=== PATIENT | male | born 1970 | race African-American/Black ===

== ENCOUNTER 2017-02-03 09:41 | Inpatient (IN) | payer OTHER ==
[2017-02-03 10:23] VITALS: BMI 32.2
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
[2017-02-03] MEDS ORDERED: LOPERAMIDE HCL 2 MG CAPSULE PO PRN (12:59)
[2017-02-03] MEDS ORDERED: guaiFENesin/D-METHORPHAN HB 10 ML UNIT-DOSE CUPS PO PRN (12:59)
[2017-02-03] MEDS ORDERED: MAG HYDROX/AL HYDROX/SIMETH 30 ML UNIT-DOSE CUP PO PRN (12:59)
[2017-02-03] MEDS ORDERED: IBUPROFEN 400 MG TABLET (FP) PO PRN (12:59)
[2017-02-03] MEDS ORDERED: chlordiazePOXIDE HCL 25 MG CAPSULE PO PRN (12:59)
[2017-02-03] MEDS ORDERED: NICOTINE POLACRILEX 4 MG GUM BC PRN (12:59)
[2017-02-03] MEDS ORDERED: MAGNESIUM CITRATE 300 ML BOTTLE PO PRN (12:59)
[2017-02-03] MEDS ORDERED: MENTHOL/PHENOL 1 EACH UD MM PRN (12:59)
[2017-02-03] MEDS ORDERED: diphenhydrAMINE HCL 50 MG CAPSULE PO PRN (12:59)
[2017-02-03] MEDS ORDERED: MAGNESIUM HYDROX 2400MG/30ML ORAL SUSPENSION 30 ML CUP PO PRN (12:59)
[2017-02-03] MEDS ORDERED: ACETAMINOPHEN 325 MG TABLET (FP) PO PRN (12:59)
[2017-02-03] MEDS ORDERED: hydrOXYzine PAMOATE 50 MG CAPSULE (FP) PO PRN (12:59)
[2017-02-03] MEDS ORDERED: chlordiazePOXIDE HCL 25 MG CAPSULE PO ONE (13:30)
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
[2017-02-03] MEDS: chlordiazePOXIDE HCL 25 MG CAPSULE PO SCH ×2 (17:23→22:39)
[2017-02-03 17:31] LABS: MCH 24.1 pg (25.7-33.7); MCHC 32.2 g/dl (32.0-35.9); MEAN CELL VOLUME 74.7 fl (80-96); MEAN PLT VOLUME 8.1 fl (7.5-11.1); PLATELET COUNT 404 K/MM3 (134-434); RDW 16.2 % (11.9-15.9); WHITE BLOOD COUNT 7.9 K/mm3 (4.0-10.0)
[2017-02-03 17:36] LABS: URINE APPEARANCE CLEAR; URINE BILIRUBIN NEGATIVE (NEGATIVE); URINE BLOOD NEGATIVE (NEGATIVE); URINE COLOR YELLOW; URINE GLUCOSE (UA) NEGATIVE (NEGATIVE); URINE KETONE NEGATIVE (NEGATIVE); URINE LEUK ESTERASE TRACE (NEGATIVE); URINE NITRITE NEGATIVE (NEGATIVE); URINE PROTEIN NEGATIVE (NEGATIVE); URINE UROBILINOGEN NEGATIVE mg/dL (0.2-1.0)
[2017-02-03 17:45] LABS: URINE MUCUS RARE; URINE RBC 1 /hpf (0-3); URINE WBC 14 /hpf (3-5)
[2017-02-03 18:58] LABS: ALBUMIN 3.7 g/dl (3.4-5.0); ANION GAP 9 (8-16); CALCIUM 9.1 mg/dL (8.5-10.1); CO2 25 mmol/L (21-32); GLUCOSE,RANDOM 96 mg/dL (74-106)
[2017-02-03 19:03] LABS: ALK PHOS 94 U/L (45-117); BILIRUBIN,TOTAL 0.5 mg/dL (0.2-1.0); CREATININE 1.2 mg/dL (0.7-1.3); SGOT/AST 9 U/L (15-37); SGPT/ALT 23 U/L (12-78); TOT PROT 7.3 g/dl (6.4-8.2)
[2017-02-03] MEDS: ZOLPIDEM TARTRATE 10 MG TABLET (PARK CARE ONLY) PO PRN (22:39)
[2017-02-03] MEDS: THIAMINE HCL 100 MG TABLET (FP) PO SCH (22:39)
[2017-02-04] MEDS: chlordiazePOXIDE HCL 25 MG CAPSULE PO SCH ×4 (06:01→22:44)
[2017-02-04] MEDS ORDERED: PATIENT'S OWN MEDICATION (NON-FORMULARY) (Efavirenz/Emtricitab/Tenofovir 1 TAB) PO SCH (10:00)
[2017-02-04] MEDS: HYDROCHLOROTHIAZIDE 25 MG TABLET (FP) PO SCH (10:44)
[2017-02-04] MEDS: EFAVIRENZ 600 MG TABLET PO SCH (10:44)
[2017-02-04] MEDS: PRENATAL VITAMINS W/ FOLIC ACID TABLET (FP) PO SCH (10:44)
[2017-02-04] MEDS: NICOTINE 21 MG/24 HOURS TOPICAL PATCH TD SCH (10:44)
[2017-02-04] MEDS: EMTRICITABINE 200MG/TENOFOVIR 300MG PO SCH (10:45)
--- NOTE | 2017-02-04 12:28 | EKG ---
Test Reason : Blood Pressure : / mmHG Vent. Rate : 075 BPM Atrial Rate : 075 BPM P-R Int : 176 ms QRS Dur : 092 ms QT Int : 406 ms P-R-T Axes : 047 -09 018 degrees QTc Int : 453 ms NORMAL SINUS RHYTHM POSSIBLE LEFT ATRIAL ENLARGEMENT SEPTAL INFARCT , AGE UNDETERMINED ABNORMAL ECG NO PREVIOUS ECGS AVAILABLE Confirmed by ANTONIA RIVERA MD ([id number]) on 02/04/2017 12:28:12 PM Referred By: Confirmed By:ANTONIA RIVERA MD
--- NOTE | 2017-02-04 12:51 | PN ---
[facility] CIWA - CIWA Score Nausea/Vomitin-Mild Nausea/No Vomiting Muscle Tremors: 4-Moderate,w/Arms Extend Anxiety: 3 Agitation: 3 Paroxysmal Sweats: 3 Orientation: 0-Oriented Tacttile Disturbances: 2-Mild Itch/Numbness/Burn Auditory Disturbances: 0-None Visual Disturbances: 0-None Headache: 0-None Present CIWA-Ar Total Score: 16 BHS Progress Note (SOAP) Subjective: Interrupted Sleep, Sweating, Tremors. Objective: PT. A & O X 3. NO ACUTE DISTRESS. 02/04/17 12:49 Vital Signs Temperature 97.1 F L 02/04/17 09:48 Pulse Rate 88 02/04/17 09:48 Respiratory Rate 18 02/04/17 09:48 Blood Pressure 115/87 02/04/17 09:48 O2 Sat by Pulse Oximetry (%) Laboratory Tests 02/03/17 02/03/17 02/03/17 13:00 13:00 13:00 WBC 7.9 RBC 5.67 H Hgb 13.7 Hct 42.4 MCV 74.7 L MCH 24.1 L MCHC 32.2 RDW 16.2 H Plt Count 404 MPV 8.1 Sodium 142 Potassium 4.5 Chloride 108 H Carbon Dioxide 25 Anion Gap 9 BUN 19 H Creatinine 1.2 Creat Clearance w eGFR > 60 Random Glucose 96 Calcium 9.1 Total Bilirubin 0.5 AST 9 L ALT 23 Alkaline Phosphatase 94 Total Protein 7.3 Albumin 3.7 Urine Color Urine Appearance Urine pH Ur Specific [place] Urine Protein Urine Glucose (UA) Urine Ketones Urine Blood Urine Nitrite Urine Bilirubin Urine Urobilinogen Ur Leukocyte Esterase Urine RBC Urine WBC Ur Epithelial Cells Urine Mucus RPR Titer Nonreactive 02/03/17 15:00 WBC RBC Hgb Hct MCV MCH MCHC RDW Plt Count MPV Sodium Potassium Chloride Carbon Dioxide Anion Gap BUN Creatinine Creat Clearance w eGFR Random Glucose Calcium Total Bilirubin AST ALT Alkaline Phosphatase Total Protein Albumin Urine Color Yellow Urine Appearance Clear Urine pH 5.0 Ur Specific [place] >= 1.030 H Urine Protein Negative Urine Glucose (UA) Negative Urine Ketones Negative Urine Blood Negative Urine Nitrite Negative Urine Bilirubin Negative Urine Urobilinogen Negative Ur Leukocyte Esterase Trace Urine RBC 1 Urine WBC 14 Ur Epithelial Cells Rare Urine Mucus Rare RPR Titer LABS NOTED. Assessment: 02/04/17 12:50 WITHDRAWAL SYMPTOMS. Plan: CONTINUE DETOX. REPEAT UA, URINE C + S FOR ADMISSION UA ABNORMALITIES (WBC, LEUKOCYTE ESTERASE). INCREASE PO FLUID INTAKE.
[2017-02-04 17:23] LABS: URINE APPEARANCE CLEAR; URINE BILIRUBIN NEGATIVE (NEGATIVE); URINE BLOOD NEGATIVE (NEGATIVE); URINE COLOR LTYELLOW; URINE GLUCOSE (UA) NEGATIVE (NEGATIVE); URINE KETONE NEGATIVE (NEGATIVE); URINE LEUK ESTERASE NEGATIVE (NEGATIVE); URINE NITRITE NEGATIVE (NEGATIVE); URINE PROTEIN NEGATIVE (NEGATIVE); URINE UROBILINOGEN NEGATIVE mg/dL (0.2-1.0)
[2017-02-04] MEDS: THIAMINE HCL 100 MG TABLET (FP) PO SCH (22:44)
[2017-02-04] MEDS: ZOLPIDEM TARTRATE 10 MG TABLET (PARK CARE ONLY) PO PRN (22:44)
[2017-02-05] MEDS: chlordiazePOXIDE HCL 25 MG CAPSULE PO SCH ×2 (05:21→10:27)
[2017-02-05] MEDS: NICOTINE 21 MG/24 HOURS TOPICAL PATCH TD SCH (10:26)
[2017-02-05] MEDS: PRENATAL VITAMINS W/ FOLIC ACID TABLET (FP) PO SCH (10:27)
[2017-02-05] MEDS: EFAVIRENZ 600 MG TABLET PO SCH (10:27)
[2017-02-05] MEDS: HYDROCHLOROTHIAZIDE 25 MG TABLET (FP) PO SCH (10:27)
[2017-02-05] MEDS: EMTRICITABINE 200MG/TENOFOVIR 300MG PO SCH (10:27)
--- NOTE | 2017-02-05 12:28 | PN ---
[facility] CIWA - CIWA Score Nausea/Vomitin-No Nausea/No Vomiting Muscle Tremors: 5 Anxiety: 4-Mod. Anxious/Guarded Agitation: 2 Paroxysmal Sweats: No Perspiration Orientation: 2-Disoriented Date<2 days Tacttile Disturbances: 3-Moderate Itch/Numb/Burn Auditory Disturbances: 0-None Visual Disturbances: 0-None Headache: 0-None Present CIWA-Ar Total Score: 16 S Progress Note (SOAP) Subjective: Fatigue, Tremors, Interrupted sleep. Objective: PT. A & O X 2 (DISORIENTED ABOUT DAY /DATE). NO ACUTE DISTRESS. 02/05/17 12:26 Vital Signs Temperature 96.7 F L 02/05/17 11:11 Pulse Rate 87 02/05/17 11:11 Respiratory Rate 18 02/05/17 11:11 Blood Pressure 111/85 02/05/17 11:11 O2 Sat by Pulse Oximetry (%) Laboratory Tests 02/03/17 02/03/17 02/03/17 13:00 13:00 13:00 WBC 7.9 RBC 5.67 H Hgb 13.7 Hct 42.4 MCV 74.7 L MCH 24.1 L MCHC 32.2 RDW 16.2 H Plt Count 404 MPV 8.1 Sodium 142 Potassium 4.5 Chloride 108 H Carbon Dioxide 25 Anion Gap 9 BUN 19 H Creatinine 1.2 Creat Clearance w eGFR > 60 Random Glucose 96 Calcium 9.1 Total Bilirubin 0.5 AST 9 L ALT 23 Alkaline Phosphatase 94 Total Protein 7.3 Albumin 3.7 Urine Color Urine Appearance Urine pH Ur Specific [place] Urine Protein Urine Glucose (UA) Urine Ketones Urine Blood Urine Nitrite Urine Bilirubin Urine Urobilinogen Ur Leukocyte Esterase Urine RBC Urine WBC Ur Epithelial Cells Urine Mucus RPR Titer Nonreactive 02/03/17 02/04/17 15:00 16:00 WBC RBC Hgb Hct MCV MCH MCHC RDW Plt Count MPV Sodium Potassium Chloride Carbon Dioxide Anion Gap BUN Creatinine Creat Clearance w eGFR Random Glucose Calcium Total Bilirubin AST ALT Alkaline Phosphatase Total Protein Albumin Urine Color Yellow Ltyellow Urine Appearance Clear Clear Urine pH 5.0 7.0 D Ur Specific [place] >= 1.030 H 1.020 Urine Protein Negative Negative Urine Glucose (UA) Negative Negative Urine Ketones Negative Negative Urine Blood Negative Negative Urine Nitrite Negative Negative Urine Bilirubin Negative Negative Urine Urobilinogen Negative Negative Ur Leukocyte Esterase Trace Negative Urine RBC 1 Urine WBC 14 Ur Epithelial Cells Rare Urine Mucus Rare RPR Titer LABS NOTED. RESULTS OF REPEAT UA NOTED. 02/05/17 12:27 Assessment: 02/05/17 12:26 WITHDRAWAL SYMPTOMS. Plan: CONTINUE DETOX.
[2017-02-05] MEDS: chlordiazePOXIDE 5 MG CAPSULE PO SCH ×2 (17:48→22:44)
[2017-02-05] MEDS: THIAMINE HCL 100 MG TABLET (FP) PO SCH (22:44)
[2017-02-05] MEDS: ZOLPIDEM TARTRATE 10 MG TABLET (PARK CARE ONLY) PO PRN (22:45)
[2017-02-06] MEDS: chlordiazePOXIDE 5 MG CAPSULE PO SCH ×2 (07:32→10:38)
[2017-02-06] MEDS: EMTRICITABINE 200MG/TENOFOVIR 300MG PO SCH (10:37)
[2017-02-06] MEDS: HYDROCHLOROTHIAZIDE 25 MG TABLET (FP) PO SCH (10:37)
[2017-02-06] MEDS: EFAVIRENZ 600 MG TABLET PO SCH (10:37)
[2017-02-06] MEDS: NICOTINE 21 MG/24 HOURS TOPICAL PATCH TD SCH (10:37)
[2017-02-06] MEDS: PRENATAL VITAMINS W/ FOLIC ACID TABLET (FP) PO SCH (10:37)
[2017-02-06] MEDS: chlordiazePOXIDE HCL 10 MG CAPSULE PO SCH ×2 (17:39→22:31)
--- NOTE | 2017-02-06 20:38 | PN ---
BHS Progress Note (SOAP) Subjective: Body Aches, Interrupted Sleep. Objective: PT. A & O X 2 (DISORIENTED ABOUT DAY / DATE). PT. OBSERVED AMBULATING ON UNIT. NO ACUTE DISTRESS. 02/06/17 20:36 Vital Signs Temperature 97.4 F L 02/06/17 19:04 Pulse Rate 82 02/06/17 19:04 Respiratory Rate 18 02/06/17 19:04 Blood Pressure 114/78 02/06/17 19:04 O2 Sat by Pulse Oximetry (%) Laboratory Tests 02/03/17 02/03/17 02/03/17 13:00 13:00 13:00 WBC 7.9 RBC 5.67 H Hgb 13.7 Hct 42.4 MCV 74.7 L MCH 24.1 L MCHC 32.2 RDW 16.2 H Plt Count 404 MPV 8.1 Sodium 142 Potassium 4.5 Chloride 108 H Carbon Dioxide 25 Anion Gap 9 BUN 19 H Creatinine 1.2 Creat Clearance w eGFR > 60 Random Glucose 96 Calcium 9.1 Total Bilirubin 0.5 AST 9 L ALT 23 Alkaline Phosphatase 94 Total Protein 7.3 Albumin 3.7 Urine Color Urine Appearance Urine pH Ur Specific [place] Urine Protein Urine Glucose (UA) Urine Ketones Urine Blood Urine Nitrite Urine Bilirubin Urine Urobilinogen Ur Leukocyte Esterase Urine RBC Urine WBC Ur Epithelial Cells Urine Mucus RPR Titer Nonreactive 02/03/17 02/04/17 15:00 16:00 WBC RBC Hgb Hct MCV MCH MCHC RDW Plt Count MPV Sodium Potassium Chloride Carbon Dioxide Anion Gap BUN Creatinine Creat Clearance w eGFR Random Glucose Calcium Total Bilirubin AST ALT Alkaline Phosphatase Total Protein Albumin Urine Color Yellow L[place]ellow Urine Appearance Clear Clear Urine pH 5.0 7.0 D Ur Specific [place] >= 1.030 H 1.020 Urine Protein Negative Negative Urine Glucose (UA) Negative Negative Urine Ketones Negative Negative Urine Blood Negative Negative Urine Nitrite Negative Negative Urine Bilirubin Negative Negative Urine Urobilinogen Negative Negative Ur Leukocyte Esterase Trace Negative Urine RBC 1 Urine WBC 14 Ur Epithelial Cells Rare Urine Mucus Rare RPR Titer LABS NOTED. RESULTS OF REPEAT UA AND URINE C + S NOTED. 02/06/17 20:38 Assessment: 02/06/17 20:37 WITHDRAWAL SYMPTOMS. Plan: CONTINUE DETOX. INCREASE PO FLUID INTAKE.
[2017-02-06] MEDS: ZOLPIDEM TARTRATE 10 MG TABLET (PARK CARE ONLY) PO PRN (22:30)
[2017-02-06] MEDS: THIAMINE HCL 100 MG TABLET (FP) PO SCH (22:30)
[2017-02-07] MEDS: chlordiazePOXIDE HCL 10 MG CAPSULE PO SCH (05:18)
[2017-02-07] MEDS: EFAVIRENZ 600 MG TABLET PO SCH (09:00)
[2017-02-07] MEDS: EMTRICITABINE 200MG/TENOFOVIR 300MG PO SCH (09:01)
[2017-02-07] MEDS: PRENATAL VITAMINS W/ FOLIC ACID TABLET (FP) PO SCH (09:01)
[2017-02-07] MEDS: HYDROCHLOROTHIAZIDE 25 MG TABLET (FP) PO SCH (09:01)
[2017-02-07] MEDS: NICOTINE 21 MG/24 HOURS TOPICAL PATCH TD SCH (09:01)
[2017-02-07 09:24] VITALS: BP 116/85; PULSE 92; TEMP 97.1
--- NOTE | 2017-02-07 13:27 | DS ---
[facility] Detox Discharge Summary Admission Date: 02/03/17 Discharge Date: 02/07/17 - History Present History: Alcohol Dependence Pertinent Past History: PPD Positive HTN HIV - Physical Exam Results Vital Signs: Vital Signs Temperature 97.1 F L 02/07/17 09:23 Pulse Rate 92 H 02/07/17 09:23 Respiratory Rate 20 02/07/17 09:23 Blood Pressure 116/85 02/07/17 09:23 O2 Sat by Pulse Oximetry (%) Pertinent Admission Physical Exam Findings: Withdrawal symptoms Laboratory Tests 02/03/17 02/03/17 02/03/17 13:00 13:00 13:00 WBC 7.9 RBC 5.67 H Hgb 13.7 Hct 42.4 MCV 74.7 L MCH 24.1 L MCHC 32.2 RDW 16.2 H Plt Count 404 MPV 8.1 Sodium 142 Potassium 4.5 Chloride 108 H Carbon Dioxide 25 Anion Gap 9 BUN 19 H Creatinine 1.2 Creat Clearance w eGFR > 60 Random Glucose 96 Calcium 9.1 Total Bilirubin 0.5 AST 9 L ALT 23 Alkaline Phosphatase 94 Total Protein 7.3 Albumin 3.7 Urine Color Urine Appearance Urine pH Ur Specific [place] Urine Protein Urine Glucose (UA) Urine Ketones Urine Blood Urine Nitrite Urine Bilirubin Urine Urobilinogen Ur Leukocyte Esterase Urine RBC Urine WBC Ur Epithelial Cells Urine Mucus RPR Titer Nonreactive 02/03/17 02/04/17 15:00 16:00 WBC RBC Hgb Hct MCV MCH MCHC RDW Plt Count MPV Sodium Potassium Chloride Carbon Dioxide Anion Gap BUN Creatinine Creat Clearance w eGFR Random Glucose Calcium Total Bilirubin AST ALT Alkaline Phosphatase Total Protein Albumin Urine Color Yellow Ltyellow Urine Appearance Clear Clear Urine pH 5.0 7.0 D Ur Specific [place] >= 1.030 H 1.020 Urine Protein Negative Negative Urine Glucose (UA) Negative Negative Urine Ketones Negative Negative Urine Blood Negative Negative Urine Nitrite Negative Negative Urine Bilirubin Negative Negative Urine Urobilinogen Negative Negative Ur Leukocyte Esterase Trace Negative Urine RBC 1 Urine WBC 14 Ur Epithelial Cells Rare Urine Mucus Rare RPR Titer Labs noted - Treatment Hospital Course: Detox Protocol Followed, Detoxed Safely, Responded well, Discharged Condition Good - Medication Discharge Medications: Ambulatory Orders Efavirenz/Emtricitab/Tenofovir [Atripla -] 1 tab PO DAILY 02/03/17 Hydrochlorothiazide [Hctz -] 25 mg PO DAILY 02/03/17 - Diagnosis (1) Alcohol dependence with uncomplicated withdrawal Status: Acute (2) Nicotine dependence Status: Chronic (3) HIV (human immunodeficiency virus infection) Status: Chronic (4) Depression Status: Chronic (5) HTN (hypertension), benign Status: Chronic (6) PPD positive Status: Chronic - AMA Did Patient Leave Against Medical Advice: No
== END 2017-02-07 10:01 | disposition home or self-care (01) | DRG 774 ==
LOC: YASAS 09:41 → Y3N 12:07
PROVIDERS: ADMIT Internal Medicine Addiction Medicine; ATTEND Internal Medicine Addiction Medicine
PROC: HZ2ZZZZ Detoxification Services for Substance Abuse Treatment (ICD-10-PCS; principal; 2017-02-03)
DX: F10.230 Alcohol dependence with withdrawal, uncomplicated (principal); F14.20 Cocaine dependence, uncomplicated; F12.20 Cannabis dependence, uncomplicated; F17.210 Nicotine dependence, cigarettes, uncomplicated; F32.9 Major depressive disorder, single episode, unspecified; F19.24 Other psychoactive substance dependence with psychoactive substance-induced mood disorder; Z21 Asymptomatic human immunodeficiency virus [HIV] infection status; I10 Essential (primary) hypertension; R76.11 Nonspecific reaction to tuberculin skin test without active tuberculosis; G47.00 Insomnia, unspecified; Z88.8 Allergy status to other drugs, medicaments and biological substances; Z86.73 Personal history of transient ischemic attack (TIA), and cerebral infarction without residual deficits; Z90.81 Acquired absence of spleen; Z87.438 Personal history of other diseases of male genital organs; Z91.5 Personal history of self-harm
CPT/HCPCS: 36415; 71020-TC; 80053; 81003; 81015; 85027; 86593; 87086; 93005; 93010

== ENCOUNTER 2017-08-26 12:40 | Inpatient (IN) | payer OTHER ==
[2017-08-26 16:26] VITALS: BMI 33.4
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
[2017-08-26] MEDS ORDERED: IBUPROFEN 400 MG TABLET (FP) PO PRN (18:36)
[2017-08-26] MEDS ORDERED: MAGNESIUM HYDROX 2400MG/30ML ORAL SUSPENSION 30 ML CUP PO PRN (18:36)
[2017-08-26] MEDS ORDERED: MAG HYDROX/AL HYDROX/SIMETH 30 ML UNIT-DOSE CUP PO PRN (18:36)
[2017-08-26] MEDS ORDERED: guaiFENesin/D-METHORPHAN HB 10 ML UNIT-DOSE CUPS PO PRN (18:36)
[2017-08-26] MEDS ORDERED: chlordiazePOXIDE HCL 25 MG CAPSULE PO PRN (18:36)
[2017-08-26] MEDS ORDERED: MAGNESIUM CITRATE 300 ML BOTTLE PO PRN (18:36)
[2017-08-26] MEDS ORDERED: LOPERAMIDE HCL 2 MG CAPSULE PO PRN (18:36)
[2017-08-26] MEDS ORDERED: P-EPHED 60MG/TRIPROLIDI 2.5MG TABLET PO PRN (18:36)
[2017-08-26] MEDS ORDERED: MENTHOL/PHENOL 1 EACH UD MM PRN (18:36)
[2017-08-26] MEDS ORDERED: ACETAMINOPHEN 325 MG TABLET (FP) PO PRN (18:36)
[2017-08-26] MEDS ORDERED: chlordiazePOXIDE HCL 25 MG CAPSULE PO ONE (18:40)
[2017-08-26] MEDS ORDERED: PATIENT'S OWN MEDICATION (NON-FORMULARY) (Efavirenz/Emtricitab/Tenofovir 1 TAB) PO SCH (18:45)
[2017-08-26] MEDS: HYDROCHLOROTHIAZIDE 25 MG TABLET (FP) PO SCH (19:34)
[2017-08-26] MEDS: EMTRICITABINE 200MG/TENOFOVIR 300MG PO SCH (19:35)
[2017-08-26] MEDS: EFAVIRENZ 600 MG TABLET PO SCH (19:35)
[2017-08-26] MEDS ORDERED: MELATONIN 5 MG TABLETS PO PRN (22:00)
[2017-08-26] MEDS: THIAMINE HCL 100 MG TABLET (FP) PO SCH (22:41)
[2017-08-26] MEDS: PRAZOSIN HCL 1 MG CAPSULE PO SCH (22:41)
[2017-08-26] MEDS: chlordiazePOXIDE HCL 25 MG CAPSULE PO SCH (22:41)
[2017-08-27 01:39] LABS: URINE APPEARANCE CLEAR; URINE BILIRUBIN NEGATIVE (<2.0 mg/dL); URINE BLOOD NEGATIVE (NEGATIVE); URINE COLOR YELLOW; URINE GLUCOSE (UA) NEGATIVE (NEGATIVE); URINE KETONE NEGATIVE (NEGATIVE); URINE LEUK ESTERASE NEGATIVE (NEGATIVE); URINE NITRITE NEGATIVE (NEGATIVE); URINE PROTEIN NEGATIVE (NEGATIVE); URINE UROBILINOGEN NEGATIVE mg/dL (0.2-1.0)
[2017-08-27] MEDS: chlordiazePOXIDE HCL 25 MG CAPSULE PO SCH ×4 (05:25→22:34)
--- NOTE | 2017-08-27 10:08 | EKG ---
Test Reason : Blood Pressure : / mmHG Vent. Rate : 086 BPM Atrial Rate : 086 BPM P-R Int : 168 ms QRS Dur : 100 ms QT Int : 368 ms P-R-T Axes : 051 -13 028 degrees QTc Int : 440 ms NORMAL SINUS RHYTHM NORMAL ECG WHEN COMPARED WITH ECG OF 03-FEB-2017 13:29, CRITERIA FOR SEPTAL INFARCT ARE NO LONGER PRESENT Confirmed by ANN ELLIS MD ([id number]) on 08/27/2017 10:07:48 AM Referred By: Confirmed By:ANN ELLIS MD
[2017-08-27 10:20] LABS: HEMATOCRIT 45.7 % (35.4-49); HEMOGLOBIN 14.6 GM/dL (11.7-16.9); MCH 23.4 pg (25.7-33.7); MCHC 31.9 g/dl (32.0-35.9); MEAN CELL VOLUME 73.3 fl (80-96); MEAN PLT VOLUME 7.6 fl (7.5-11.1); PLATELET COUNT 347 K/MM3 (134-434); RBC 6.24 M/mm3 (4.00-5.60); RDW 16.1 % (11.9-15.9); WHITE BLOOD COUNT 7.1 K/mm3 (4.0-10.0)
[2017-08-27] MEDS: HYDROCHLOROTHIAZIDE 25 MG TABLET (FP) PO SCH (10:28)
[2017-08-27] MEDS: PRENATAL VITAMINS W/ FOLIC ACID TABLET (FP) PO SCH (10:28)
[2017-08-27 10:29] LABS: ALBUMIN 3.7 g/dl (3.4-5.0); ANION GAP 11 (8-16); BLOOD UREA NITROGEN 9 mg/dL (7-18); CALCIUM 9.1 mg/dL (8.5-10.1); CHLORIDE 104 mmol/L (98-107); CO2 26 mmol/L (21-32); GLUCOSE,RANDOM 86 mg/dL (74-106); POTASSIUM 4.2 mmol/L (3.5-5.1); SODIUM 141 mmol/L (136-145)
[2017-08-27] MEDS: EFAVIRENZ 600 MG TABLET PO SCH ×2 (10:29→22:35)
[2017-08-27] MEDS: EMTRICITABINE 200MG/TENOFOVIR 300MG PO SCH ×2 (10:29→22:36)
[2017-08-27 10:34] LABS: ALK PHOS 76 U/L (45-117); BILIRUBIN,TOTAL 0.3 mg/dL (0.2-1.0); CREATININE 0.9 mg/dL (0.7-1.3); SGOT/AST 13 U/L (15-37); SGPT/ALT 14 U/L (12-78); TOT PROT 7.2 g/dl (6.4-8.2)
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
--- NOTE | 2017-08-27 12:19 | PN ---
S CIWA - CIWA Score Nausea/Vomitin-No Nausea/No Vomiting Muscle Tremors: 3 Anxiety: 4-Mod. Anxious/Guarded Agitation: 2 Paroxysmal Sweats: 3 Orientation: 2-Disoriented Date<2 days Tacttile Disturbances: 2-Mild Itch/Numbness/Burn Auditory Disturbances: 0-None Visual Disturbances: 0-None Headache: 0-None Present CIWA-Ar Total Score: 16 BHS Progress Note (SOAP) Subjective: Interrupted Sleep, Fatigue, Tremors, Sweating. Objective: PATIENT A & O X 2 (UNCERTAIN ABOUT CURRENT DAY/ DATE). NO ACUTE DISTRESS. 08/27/17 12:15 Vital Signs Temperature 96.6 F L 08/27/17 09:17 Pulse Rate 93 H 08/27/17 09:17 Respiratory Rate 18 08/27/17 09:17 Blood Pressure 124/70 08/27/17 09:17 O2 Sat by Pulse Oximetry (%) Laboratory Tests 08/26/17 08/27/17 08/27/17 23:44 08:00 08:00 WBC 7.1 RBC 6.24 H Hgb 14.6 Hct 45.7 MCV 73.3 L MCH 23.4 L MCHC 31.9 L RDW 16.1 H Plt Count 347 MPV 7.6 Sodium 141 Potassium 4.2 Chloride 104 Carbon Dioxide 26 Anion Gap 11 BUN 9 D Creatinine 0.9 D Creat Clearance w eGFR > 60 Random Glucose 86 Calcium 9.1 Total Bilirubin 0.3 D AST 13 L D ALT 14 D Alkaline Phosphatase 76 Total Protein 7.2 Albumin 3.7 Urine Color Yellow Urine Appearance Clear Urine pH 6.0 Ur Specific [place] 1.017 Urine Protein Negative Urine Glucose (UA) Negative Urine Ketones Negative Urine Blood Negative Urine Nitrite Negative Urine Bilirubin Negative Urine Urobilinogen Negative Ur Leukocyte Esterase Negative RPR Titer 08/27/17 08:00 WBC RBC Hgb Hct MCV MCH MCHC RDW Plt Count MPV Sodium Potassium Chloride Carbon Dioxide Anion Gap BUN Creatinine Creat Clearance w eGFR Random Glucose Calcium Total Bilirubin AST ALT Alkaline Phosphatase Total Protein Albumin Urine Color Urine Appearance Urine pH Ur Specific [place] Urine Protein Urine Glucose (UA) Urine Ketones Urine Blood Urine Nitrite Urine Bilirubin Urine Urobilinogen Ur Leukocyte Esterase RPR Titer Nonreactive LABS NOTED. Assessment: 08/27/17 12:17 WITHDRAWAL SYMPTOMS. Plan: CONTINUE DETOX. INCREASE DAILY PO FLUID INTAKE.
[2017-08-27] MEDS: PRAZOSIN HCL 1 MG CAPSULE PO SCH (22:34)
[2017-08-27] MEDS: THIAMINE HCL 100 MG TABLET (FP) PO SCH (22:34)
[2017-08-28] MEDS: chlordiazePOXIDE HCL 25 MG CAPSULE PO SCH ×3 (05:20→18:07)
[2017-08-28] MEDS: PRENATAL VITAMINS W/ FOLIC ACID TABLET (FP) PO SCH (10:22)
[2017-08-28] MEDS: HYDROCHLOROTHIAZIDE 25 MG TABLET (FP) PO SCH (10:22)
--- NOTE | 2017-08-28 16:37 | PN ---
S CIWA - CIWA Score Nausea/Vomitin-No Nausea/No Vomiting Muscle Tremors: 3 Anxiety: 3 Agitation: 2 Paroxysmal Sweats: 3 Orientation: 0-Oriented Tacttile Disturbances: 0-None Auditory Disturbances: 2-Mild Harshness/Frighten Visual Disturbances: 3-Moderate Sensitivity Headache: 0-None Present CIWA-Ar Total Score: 16 BHS Progress Note (SOAP) Subjective: Interrupted Sleep, Fatigue, Tremors, Sweating. Objective: PATIENT A & O X 3, OBSERVED AMBULATING ON UNIT. NO ACUTE DISTRESS. 08/28/17 16:36 Vital Signs Temperature 97.1 F L 08/28/17 14:35 Pulse Rate 100 H 08/28/17 14:35 Respiratory Rate 20 08/28/17 14:35 Blood Pressure 118/88 08/28/17 14:35 O2 Sat by Pulse Oximetry (%) Laboratory Tests 08/26/17 08/27/17 08/27/17 23:44 08:00 08:00 WBC 7.1 RBC 6.24 H Hgb 14.6 Hct 45.7 MCV 73.3 L MCH 23.4 L MCHC 31.9 L RDW 16.1 H Plt Count 347 MPV 7.6 Sodium 141 Potassium 4.2 Chloride 104 Carbon Dioxide 26 Anion Gap 11 BUN 9 D Creatinine 0.9 D Creat Clearance w eGFR > 60 Random Glucose 86 Calcium 9.1 Total Bilirubin 0.3 D AST 13 L D ALT 14 D Alkaline Phosphatase 76 Total Protein 7.2 Albumin 3.7 Urine Color Yellow Urine Appearance Clear Urine pH 6.0 Ur Specific [place] 1.017 Urine Protein Negative Urine Glucose (UA) Negative Urine Ketones Negative Urine Blood Negative Urine Nitrite Negative Urine Bilirubin Negative Urine Urobilinogen Negative Ur Leukocyte Esterase Negative RPR Titer 08/27/17 08:00 WBC RBC Hgb Hct MCV MCH MCHC RDW Plt Count MPV Sodium Potassium Chloride Carbon Dioxide Anion Gap BUN Creatinine Creat Clearance w eGFR Random Glucose Calcium Total Bilirubin AST ALT Alkaline Phosphatase Total Protein Albumin Urine Color Urine Appearance Urine pH Ur Specific [place] Urine Protein Urine Glucose (UA) Urine Ketones Urine Blood Urine Nitrite Urine Bilirubin Urine Urobilinogen Ur Leukocyte Esterase RPR Titer Nonreactive LABS NOTED. Assessment: 08/28/17 16:36 WITHDRAWAL SYMPTOMS. Plan: CONTINUE DETOX. INCREASE DAILY PO FLUID INTAKE.
[2017-08-28] MEDS: PRAZOSIN HCL 1 MG CAPSULE PO SCH (22:43)
[2017-08-28] MEDS: THIAMINE HCL 100 MG TABLET (FP) PO SCH (22:43)
[2017-08-28] MEDS: EFAVIRENZ 600 MG TABLET PO SCH (22:43)
[2017-08-28] MEDS: EMTRICITABINE 200MG/TENOFOVIR 300MG PO SCH (22:43)
[2017-08-28] MEDS: chlordiazePOXIDE 5 MG CAPSULE PO SCH (22:46)
[2017-08-29] MEDS: chlordiazePOXIDE 5 MG CAPSULE PO SCH ×3 (05:19→17:48)
[2017-08-29] MEDS: HYDROCHLOROTHIAZIDE 25 MG TABLET (FP) PO SCH (10:22)
[2017-08-29] MEDS: PRENATAL VITAMINS W/ FOLIC ACID TABLET (FP) PO SCH (10:22)
--- NOTE | 2017-08-29 10:38 | PN ---
BHS Progress Note (SOAP) Subjective: sweats body aches Objective: 08/29/17 10:37 Vital Signs Temperature 96.7 F L 08/29/17 06:09 Pulse Rate 91 H 08/29/17 06:09 Respiratory Rate 18 08/29/17 06:09 Blood Pressure 91/68 08/29/17 06:09 O2 Sat by Pulse Oximetry (%) aaox3 ambulating no acute distress Assessment: 08/29/17 10:37 withdrawal sx Plan: continue detox increase fluids d/c in am
[2017-08-29] MEDS ORDERED: chlordiazePOXIDE 5 MG CAPSULE ONE (21:08)
[2017-08-29] MEDS: EFAVIRENZ 600 MG TABLET PO SCH (22:35)
[2017-08-29] MEDS: THIAMINE HCL 100 MG TABLET (FP) PO SCH (22:35)
[2017-08-29] MEDS: chlordiazePOXIDE HCL 10 MG CAPSULE PO SCH (22:36)
[2017-08-29] MEDS: PRAZOSIN HCL 1 MG CAPSULE PO SCH (22:36)
[2017-08-29] MEDS: EMTRICITABINE 200MG/TENOFOVIR 300MG PO SCH (22:36)
[2017-08-30] MEDS: chlordiazePOXIDE HCL 10 MG CAPSULE PO SCH ×2 (05:21→10:30)
[2017-08-30 09:13] VITALS: BP 130/93; PULSE 96; TEMP 95.1
[2017-08-30] MEDS: PRENATAL VITAMINS W/ FOLIC ACID TABLET (FP) PO SCH (10:28)
[2017-08-30] MEDS: HYDROCHLOROTHIAZIDE 25 MG TABLET (FP) PO SCH (10:29)
--- NOTE | 2017-08-30 12:59 | PN ---
BHS Progress Note (SOAP) Subjective: Earlier on during AM Rounds assessment, Patient reported diarrhea since earlier this AM. Patient denies any other Detox symptoms. Later on in AM, patient reported that diarrhea had subsided somewhat. Objective: PATIENT A & O X 3, OBSERVED AMBULATING ON UNIT. NO ACUTE DISTRESS. 08/30/17 12:57 Vital Signs Temperature 95.1 F L 08/30/17 09:12 Pulse Rate 96 H 08/30/17 09:12 Respiratory Rate 18 08/30/17 09:12 Blood Pressure 130/93 08/30/17 09:12 O2 Sat by Pulse Oximetry (%) Laboratory Tests 08/26/17 08/27/17 08/27/17 23:44 08:00 08:00 WBC 7.1 RBC 6.24 H Hgb 14.6 Hct 45.7 MCV 73.3 L MCH 23.4 L MCHC 31.9 L RDW 16.1 H Plt Count 347 MPV 7.6 Sodium 141 Potassium 4.2 Chloride 104 Carbon Dioxide 26 Anion Gap 11 BUN 9 D Creatinine 0.9 D Creat Clearance w eGFR > 60 Random Glucose 86 Calcium 9.1 Total Bilirubin 0.3 D AST 13 L D ALT 14 D Alkaline Phosphatase 76 Total Protein 7.2 Albumin 3.7 Urine Color Yellow Urine Appearance Clear Urine pH 6.0 Ur Specific [place] 1.017 Urine Protein Negative Urine Glucose (UA) Negative Urine Ketones Negative Urine Blood Negative Urine Nitrite Negative Urine Bilirubin Negative Urine Urobilinogen Negative Ur Leukocyte Esterase Negative RPR Titer 08/27/17 08:00 WBC RBC Hgb Hct MCV MCH MCHC RDW Plt Count MPV Sodium Potassium Chloride Carbon Dioxide Anion Gap BUN Creatinine Creat Clearance w eGFR Random Glucose Calcium Total Bilirubin AST ALT Alkaline Phosphatase Total Protein Albumin Urine Color Urine Appearance Urine pH Ur Specific [place] Urine Protein Urine Glucose (UA) Urine Ketones Urine Blood Urine Nitrite Urine Bilirubin Urine Urobilinogen Ur Leukocyte Esterase RPR Titer Nonreactive LABS NOTED. Assessment: 08/30/17 12:57 COMPLETION OF DETOX REGIMEN. Plan: PATIENT SCHEDULED FOR DETOX TODAY. PATIENT SCHEDULED TO GO ON TO [facility] FOR AFTERCARE.
--- NOTE | 2017-08-30 13:03 | DS ---
[facility] Detox Discharge Summary Admission Date: 08/26/17 Discharge Date: 08/30/17 - History Present History: Alcohol Dependence, Cannabis Dependence Additional Comments: PAT[facility] ([facility] FOR AFTERCARE. PATIENT WAS DISCHARGED FROM DETOX UNIT IN STABLE MEDICAL CONDITION. Pertinent Past History: HTN, History of Positive PPD, Insomnia, HIV, Nicotine Dependence. - Physical Exam Results Vital Signs: Vital Signs Temperature 95.1 F L 08/30/17 09:12 Pulse Rate 96 H 08/30/17 09:12 Respiratory Rate 08/30/17 09:12 Blood Pressure 130/93 08/30/17 09:12 O2 Sat by Pulse Oximetry (%) Pertinent Admission Physical Exam Findings: WITHDRAWAL SYMPTOMS. Laboratory Tests 08/26/17 08/27/17 08/27/17 23:44 08:00 08:00 WBC 7.1 RBC 6.24 H Hgb 14.6 Hct 45.7 MCV 73.3 L MCH 23.4 L MCHC 31.9 L RDW 16.1 H Plt Count 347 MPV 7.6 Sodium 141 Potassium 4.2 Chloride 104 Carbon Dioxide 26 Anion Gap 11 BUN 9 D Creatinine 0.9 D Creat Clearance w eGFR > 60 Random Glucose 86 Calcium 9.1 Total Bilirubin 0.3 D AST 13 L D ALT 14 D Alkaline Phosphatase 76 Total Protein 7.2 Albumin 3.7 Urine Color Yellow Urine Appearance Clear Urine pH 6.0 Ur Specific [place] 1.017 Urine Protein Negative Urine Glucose (UA) Negative Urine Ketones Negative Urine Blood Negative Urine Nitrite Negative Urine Bilirubin Negative Urine Urobilinogen Negative Ur Leukocyte Esterase Negative RPR Titer 08/27/17 08:00 WBC RBC Hgb Hct MCV MCH MCHC RDW Plt Count MPV Sodium Potassium Chloride Carbon Dioxide Anion Gap BUN Creatinine Creat Clearance w eGFR Random Glucose Calcium Total Bilirubin AST ALT Alkaline Phosphatase Total Protein Albumin Urine Color Urine Appearance Urine pH Ur Specific [place] Urine Protein Urine Glucose (UA) Urine Ketones Urine Blood Urine Nitrite Urine Bilirubin Urine Urobilinogen Ur Leukocyte Esterase RPR Titer Nonreactive LABS NOTED. - Treatment Hospital Course: Detox Protocol Followed, Detoxed Safely, Responded well, Discharged Condition Good, Rehab Referral Accepted Patient has Accepted a Rehab Referral to: [facility] ([facility]) . - Medication Discharge Medications: Ambulatory Orders Efavirenz/Emtricitab/Tenofovir [Atripla -] 1 tab PO DAILY 02/03/17 Hydrochlorothiazide [Hctz -] 25 mg PO DAILY 02/03/17 Prazosin HCl [Minipress -] 2 mg PO HS 08/26/17 - Diagnosis (1) Alcohol dependence with uncomplicated withdrawal Status: Acute (2) Insomnia Status: Acute Qualifiers: Insomnia type: unspecified Qualified Code(s): G47.00 - Insomnia, unspecified (3) Marihuana dependence Status: Acute (4) Nicotine dependence Status: Acute Qualifiers: Nicotine product type: cigarettes Substance use status: uncomplicated Qualified Code(s): F17.210 - Nicotine dependence, cigarettes, uncomplicated (5) Substance induced mood disorder Status: Acute (6) HIV (human immunodeficiency virus infection) Status: Chronic (7) HTN (hypertension), benign Status: Chronic (8) PPD positive Status: Chronic - AMA Did Patient Leave Against Medical Advice: No
== END 2017-08-30 12:34 | disposition other institution (70) | DRG 775 ==
LOC: YASAS 12:40 → Y3N 17:40
PROVIDERS: ADMIT Internal Medicine; ATTEND Internal Medicine
PROC: HZ2ZZZZ Detoxification Services for Substance Abuse Treatment (ICD-10-PCS; principal; 2017-08-26)
DX: F10.230 Alcohol dependence with withdrawal, uncomplicated (principal); F12.20 Cannabis dependence, uncomplicated; F17.210 Nicotine dependence, cigarettes, uncomplicated; F19.24 Other psychoactive substance dependence with psychoactive substance-induced mood disorder; G47.00 Insomnia, unspecified; I10 Essential (primary) hypertension; Z21 Asymptomatic human immunodeficiency virus [HIV] infection status; Z87.438 Personal history of other diseases of male genital organs; Z86.19 Personal history of other infectious and parasitic diseases; R76.11 Nonspecific reaction to tuberculin skin test without active tuberculosis; Z91.5 Personal history of self-harm
CPT/HCPCS: 36415; 71046-TC-FY; 80053; 81003; 85027; 86593; 93005; 93010

== ENCOUNTER 2017-08-30 12:43 | Inpatient (IN) | payer OTHER ==
[2017-08-30] MEDS ORDERED: MAG HYDROX/AL HYDROX/SIMETH 30 ML UNIT-DOSE CUP PO PRN (13:04)
[2017-08-30] MEDS ORDERED: ACETAMINOPHEN 325 MG TABLET (FP) PO PRN (13:04)
[2017-08-30] MEDS ORDERED: LOPERAMIDE HCL 2 MG CAPSULE PO PRN (13:04)
[2017-08-30] MEDS ORDERED: MENTHOL/PHENOL 1 EACH UD MM PRN (13:04)
[2017-08-30] MEDS ORDERED: MAGNESIUM CITRATE 300 ML BOTTLE PO PRN (13:04)
[2017-08-30] MEDS ORDERED: guaiFENesin/D-METHORPHAN HB 10 ML UNIT-DOSE CUPS PO PRN (13:04)
[2017-08-30] MEDS ORDERED: IBUPROFEN 400 MG TABLET (FP) PO PRN (13:04)
[2017-08-30] MEDS ORDERED: MAGNESIUM HYDROX 2400MG/30ML ORAL SUSPENSION 30 ML CUP PO PRN (13:04)
--- NOTE | 2017-08-30 13:09 | HP ---
[facility] Re[facility] Assess/Revision - Admission History Admitted to Rehab from: [facility] Date of Admission to Rehab: 08/30/2017 - Vital signs Vital Signs: NOTED; STABLE. - Findings Detox History & Physical reviewed: Yes Concur with findings: Yes Comments/Additional Findings: PATIENT'S MEDICAL / MEDICATION HISTORY REVIEWED PRIOR TO DISCHARGE FROM DETOX UNIT. PATIENT WAS DISCHARGED FROM DETOX UNIT TO [facility] IN STABLE [place] CONDITION. Inpatient Rehab Admission - Initial Determination Are CD services needed?: Yes Free of communicable disease: Yes Not in need of hospitalization: Yes - Rehab Admission Criteria Previous failed treatment: Yes Comorbidities: Yes Patient is meeting Inpatient Rehab admission criteria:: Yes
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
[2017-08-30] MEDS: THIAMINE HCL 100 MG TABLET (FP) PO SCH (21:40)
[2017-08-30] MEDS: PRAZOSIN HCL 1 MG CAPSULE PO SCH (22:26)
[2017-08-30] MEDS: MELATONIN 5 MG TABLETS PO PRN (22:28)
[2017-08-31] MEDS ORDERED: PATIENT'S OWN MEDICATION (NON-FORMULARY) (Efavirenz/Emtricitab/Tenofovir 1 TAB) PO SCH (10:00)
[2017-08-31] MEDS: EFAVIRENZ 600 MG TABLET PO SCH (10:16)
[2017-08-31] MEDS: PRENATAL VITAMINS W/ FOLIC ACID TABLET (FP) PO SCH (10:16)
[2017-08-31] MEDS: HYDROCHLOROTHIAZIDE 25 MG TABLET (FP) PO SCH (10:16)
[2017-08-31] MEDS: SERTRALINE HCL 25 MG TABLET (FP) PO SCH (10:16)
[2017-08-31] MEDS: EMTRICITABINE 200MG/TENOFOVIR 300MG PO SCH (10:17)
[2017-08-31] MEDS: THIAMINE HCL 100 MG TABLET (FP) PO SCH (21:25)
[2017-08-31] MEDS: MELATONIN 5 MG TABLETS PO PRN (21:25)
[2017-08-31] MEDS: PRAZOSIN HCL 1 MG CAPSULE PO SCH (21:25)
[2017-09-01] MEDS: HYDROCHLOROTHIAZIDE 25 MG TABLET (FP) PO SCH (10:22)
[2017-09-01] MEDS: PRENATAL VITAMINS W/ FOLIC ACID TABLET (FP) PO SCH (10:22)
[2017-09-01] MEDS: EMTRICITABINE 200MG/TENOFOVIR 300MG PO SCH (10:23)
[2017-09-01] MEDS: EFAVIRENZ 600 MG TABLET PO SCH (10:23)
[2017-09-01] MEDS: SERTRALINE HCL 25 MG TABLET (FP) PO SCH (10:23)
[2017-09-01] MEDS: PRAZOSIN HCL 1 MG CAPSULE PO SCH (21:33)
[2017-09-01] MEDS: THIAMINE HCL 100 MG TABLET (FP) PO SCH (21:33)
[2017-09-01] MEDS: MELATONIN 5 MG TABLETS PO PRN (21:33)
[2017-09-02] MEDS: HYDROCHLOROTHIAZIDE 25 MG TABLET (FP) PO SCH (10:13)
[2017-09-02] MEDS: PRENATAL VITAMINS W/ FOLIC ACID TABLET (FP) PO SCH (10:13)
[2017-09-02] MEDS: EFAVIRENZ 600 MG TABLET PO SCH (10:13)
[2017-09-02] MEDS: SERTRALINE HCL 25 MG TABLET (FP) PO SCH (10:13)
[2017-09-02] MEDS: EMTRICITABINE 200MG/TENOFOVIR 300MG PO SCH (10:13)
[2017-09-02] MEDS: THIAMINE HCL 100 MG TABLET (FP) PO SCH (21:44)
[2017-09-02] MEDS: PRAZOSIN HCL 1 MG CAPSULE PO SCH (21:44)
[2017-09-02] MEDS: MELATONIN 5 MG TABLETS PO PRN (21:46)
[2017-09-03] MEDS: EFAVIRENZ 600 MG TABLET PO SCH (10:46)
[2017-09-03] MEDS: HYDROCHLOROTHIAZIDE 25 MG TABLET (FP) PO SCH (10:46)
[2017-09-03] MEDS: PRENATAL VITAMINS W/ FOLIC ACID TABLET (FP) PO SCH (10:46)
[2017-09-03] MEDS: SERTRALINE HCL 25 MG TABLET (FP) PO SCH (10:46)
[2017-09-03] MEDS: EMTRICITABINE 200MG/TENOFOVIR 300MG PO SCH (10:51)
[2017-09-03] MEDS: PRAZOSIN HCL 1 MG CAPSULE PO SCH (21:25)
[2017-09-03] MEDS: THIAMINE HCL 100 MG TABLET (FP) PO SCH (21:25)
[2017-09-03] MEDS: MELATONIN 5 MG TABLETS PO PRN (21:26)
[2017-09-04] MEDS: HYDROCHLOROTHIAZIDE 25 MG TABLET (FP) PO SCH (10:13)
[2017-09-04] MEDS: EFAVIRENZ 600 MG TABLET PO SCH (10:13)
[2017-09-04] MEDS: SERTRALINE HCL 25 MG TABLET (FP) PO SCH (10:13)
[2017-09-04] MEDS: PRENATAL VITAMINS W/ FOLIC ACID TABLET (FP) PO SCH (10:13)
[2017-09-04] MEDS: EMTRICITABINE 200MG/TENOFOVIR 300MG PO SCH (10:14)
[2017-09-04] MEDS: PRAZOSIN HCL 1 MG CAPSULE PO SCH (21:43)
[2017-09-04] MEDS: MELATONIN 5 MG TABLETS PO PRN (21:43)
[2017-09-04] MEDS: THIAMINE HCL 100 MG TABLET (FP) PO SCH (21:43)
[2017-09-05] MEDS: HYDROCHLOROTHIAZIDE 25 MG TABLET (FP) PO SCH (09:53)
[2017-09-05] MEDS: EFAVIRENZ 600 MG TABLET PO SCH (09:53)
[2017-09-05] MEDS: PRENATAL VITAMINS W/ FOLIC ACID TABLET (FP) PO SCH (09:53)
[2017-09-05] MEDS: SERTRALINE HCL 25 MG TABLET (FP) PO SCH (09:54)
[2017-09-05] MEDS: EMTRICITABINE 200MG/TENOFOVIR 300MG PO SCH (09:54)
[2017-09-05] MEDS: PRAZOSIN HCL 1 MG CAPSULE PO SCH (21:39)
[2017-09-05] MEDS: THIAMINE HCL 100 MG TABLET (FP) PO SCH (21:39)
[2017-09-05] MEDS: MELATONIN 5 MG TABLETS PO PRN (21:40)
[2017-09-06] MEDS: HYDROCHLOROTHIAZIDE 25 MG TABLET (FP) PO SCH (10:39)
[2017-09-06] MEDS: EFAVIRENZ 600 MG TABLET PO SCH (10:39)
[2017-09-06] MEDS: PRENATAL VITAMINS W/ FOLIC ACID TABLET (FP) PO SCH (10:39)
[2017-09-06] MEDS: SERTRALINE HCL 25 MG TABLET (FP) PO SCH (10:39)
[2017-09-06] MEDS: EMTRICITABINE 200MG/TENOFOVIR 300MG PO SCH (10:40)
[2017-09-06] MEDS: THIAMINE HCL 100 MG TABLET (FP) PO SCH (21:20)
[2017-09-06] MEDS: PRAZOSIN HCL 1 MG CAPSULE PO SCH (21:20)
[2017-09-06] MEDS: MELATONIN 5 MG TABLETS PO PRN (21:21)
[2017-09-07] MEDS: EMTRICITABINE 200MG/TENOFOVIR 300MG PO SCH (10:33)
[2017-09-07] MEDS: PRENATAL VITAMINS W/ FOLIC ACID TABLET (FP) PO SCH (10:33)
[2017-09-07] MEDS: HYDROCHLOROTHIAZIDE 25 MG TABLET (FP) PO SCH (10:33)
[2017-09-07] MEDS: EFAVIRENZ 600 MG TABLET PO SCH (10:33)
[2017-09-07] MEDS: SERTRALINE HCL 25 MG TABLET (FP) PO SCH (10:33)
[2017-09-07] MEDS: MELATONIN 5 MG TABLETS PO PRN (21:16)
[2017-09-07] MEDS: PRAZOSIN HCL 1 MG CAPSULE PO SCH (21:16)
[2017-09-07] MEDS: THIAMINE HCL 100 MG TABLET (FP) PO SCH (21:16)
[2017-09-08] MEDS: EFAVIRENZ 600 MG TABLET PO SCH (10:07)
[2017-09-08] MEDS: HYDROCHLOROTHIAZIDE 25 MG TABLET (FP) PO SCH (10:07)
[2017-09-08] MEDS: SERTRALINE HCL 25 MG TABLET (FP) PO SCH (10:07)
[2017-09-08] MEDS: EMTRICITABINE 200MG/TENOFOVIR 300MG PO SCH (10:07)
[2017-09-08] MEDS: PRENATAL VITAMINS W/ FOLIC ACID TABLET (FP) PO SCH (10:07)
[2017-09-08] MEDS: THIAMINE HCL 100 MG TABLET (FP) PO SCH (21:55)
[2017-09-08] MEDS: PRAZOSIN HCL 1 MG CAPSULE PO SCH (21:55)
[2017-09-08] MEDS: MELATONIN 5 MG TABLETS PO PRN (21:56)
[2017-09-09] MEDS: SERTRALINE HCL 25 MG TABLET (FP) PO SCH (10:08)
[2017-09-09] MEDS: EFAVIRENZ 600 MG TABLET PO SCH (10:08)
[2017-09-09] MEDS: HYDROCHLOROTHIAZIDE 25 MG TABLET (FP) PO SCH (10:08)
[2017-09-09] MEDS: EMTRICITABINE 200MG/TENOFOVIR 300MG PO SCH (10:08)
[2017-09-09] MEDS: PRENATAL VITAMINS W/ FOLIC ACID TABLET (FP) PO SCH (10:08)
--- NOTE | 2017-09-09 15:36 | PN ---
[facility] Progress Note Note: S; C/O redness both eyes States has allergies. Notes has associated with itchy eyes. Denies eye pain or visual changes. O: Mild erythema both sclera. No FB noted. Clear tearing, no purulence. Conjunctiva pink. Vital Signs Temperature 98.1 F 09/09/17 07:10 Pulse Rate 64 09/09/17 07:10 Respiratory Rate 18 09/09/17 07:10 Blood Pressure 117/77 09/09/17 07:10 O2 Sat by Pulse Oximetry (%) A: Allergic conjunctivitis. P: Cromolyn sodium 1 drop both QID
[2017-09-09] MEDS: CROMOLYN SODIUM 4% OPHTH DROPS 10 ML BOTTLE OU SCH (17:36)
[2017-09-09] MEDS: MELATONIN 5 MG TABLETS PO PRN (21:42)
[2017-09-09] MEDS: THIAMINE HCL 100 MG TABLET (FP) PO SCH (21:42)
[2017-09-09] MEDS: PRAZOSIN HCL 1 MG CAPSULE PO SCH (21:42)
[2017-09-10] MEDS: CROMOLYN SODIUM 4% OPHTH DROPS 10 ML BOTTLE OU SCH ×5 (00:18→23:32)
[2017-09-10] MEDS ORDERED: PT OWN MED DRAWER 7, Y5N ONE (05:35)
[2017-09-10] MEDS: EFAVIRENZ 600 MG TABLET PO SCH (10:21)
[2017-09-10] MEDS: PRENATAL VITAMINS W/ FOLIC ACID TABLET (FP) PO SCH (10:21)
[2017-09-10] MEDS: HYDROCHLOROTHIAZIDE 25 MG TABLET (FP) PO SCH (10:21)
[2017-09-10] MEDS: EMTRICITABINE 200MG/TENOFOVIR 300MG PO SCH (10:21)
[2017-09-10] MEDS: SERTRALINE HCL 25 MG TABLET (FP) PO SCH (10:21)
[2017-09-10] MEDS: PRAZOSIN HCL 1 MG CAPSULE PO SCH (21:33)
[2017-09-10] MEDS: MELATONIN 5 MG TABLETS PO PRN (21:34)
[2017-09-10] MEDS: THIAMINE HCL 100 MG TABLET (FP) PO SCH (21:34)
[2017-09-11] MEDS: CROMOLYN SODIUM 4% OPHTH DROPS 10 ML BOTTLE OU SCH ×3 (06:58→17:35)
[2017-09-11] MEDS: HYDROCHLOROTHIAZIDE 25 MG TABLET (FP) PO SCH (09:46)
[2017-09-11] MEDS: SERTRALINE HCL 25 MG TABLET (FP) PO SCH (09:46)
[2017-09-11] MEDS: EFAVIRENZ 600 MG TABLET PO SCH (09:46)
[2017-09-11] MEDS: PRENATAL VITAMINS W/ FOLIC ACID TABLET (FP) PO SCH (09:46)
[2017-09-11] MEDS: EMTRICITABINE 200MG/TENOFOVIR 300MG PO SCH (09:47)
[2017-09-11] MEDS: THIAMINE HCL 100 MG TABLET (FP) PO SCH (21:23)
[2017-09-11] MEDS: PRAZOSIN HCL 1 MG CAPSULE PO SCH (21:23)
[2017-09-11] MEDS: MELATONIN 5 MG TABLETS PO PRN (21:24)
[2017-09-12] MEDS: CROMOLYN SODIUM 4% OPHTH DROPS 10 ML BOTTLE OU SCH ×5 (00:13→23:13)
[2017-09-12] MEDS: EFAVIRENZ 600 MG TABLET PO SCH (10:06)
[2017-09-12] MEDS: HYDROCHLOROTHIAZIDE 25 MG TABLET (FP) PO SCH (10:06)
[2017-09-12] MEDS: PRENATAL VITAMINS W/ FOLIC ACID TABLET (FP) PO SCH (10:06)
[2017-09-12] MEDS: SERTRALINE HCL 25 MG TABLET (FP) PO SCH (10:07)
[2017-09-12] MEDS: EMTRICITABINE 200MG/TENOFOVIR 300MG PO SCH (10:07)
[2017-09-12] MEDS: THIAMINE HCL 100 MG TABLET (FP) PO SCH (21:27)
[2017-09-12] MEDS: MELATONIN 5 MG TABLETS PO PRN (21:27)
[2017-09-12] MEDS: PRAZOSIN HCL 1 MG CAPSULE PO SCH (21:27)
[2017-09-13] MEDS: CROMOLYN SODIUM 4% OPHTH DROPS 10 ML BOTTLE OU SCH (06:00)
[2017-09-13 07:11] VITALS: BP 129/74; PULSE 67; TEMP 97.3
[2017-09-13] MEDS: EFAVIRENZ 600 MG TABLET PO SCH (10:40)
[2017-09-13] MEDS: EMTRICITABINE 200MG/TENOFOVIR 300MG PO SCH (10:40)
[2017-09-13] MEDS: PRENATAL VITAMINS W/ FOLIC ACID TABLET (FP) PO SCH (10:40)
[2017-09-13] MEDS: SERTRALINE HCL 25 MG TABLET (FP) PO SCH (10:40)
[2017-09-13] MEDS: HYDROCHLOROTHIAZIDE 25 MG TABLET (FP) PO SCH (10:40)
--- NOTE | 2017-09-13 10:42 | PN ---
Psychiatric Progress Note Vital Signs: Vital Signs Period Temp Pulse Resp BP Sys/Lora Pulse Ox Last 24 Hr 97.3 F 67 16-18 129/74 Date of Session: 09/13/17 Chief Complaint:: discharge vist HPI: Patient has addressed cannabis, nicotine dependence, comorbid MDD, PTSD. ROS: HIV+, hypercholesterolemia medically managed Current Medications: Active Medications Generic Name Dose Route Start Last Admin Trade Name Freq PRN Reason Stop Dose Admin Acetaminophen 650 mg 08/30/17 13:04 Tylenol - PO Q4H PRN FEVER Al Hydroxide/Mg Hydroxide 30 ml 08/30/17 13:04 Mylanta Oral Suspension - PO Q6H PRN DYSPEPSIA Cromolyn Sodium 1 drop 09/09/17 18:00 09/13/17 06:00 Crolom - OU Not Given Q6HPO CLARA Efavirenz 600 mg 08/31/17 10:00 09/12/17 10:06 Sustiva - PO 600 mg DAILY CLARA Administration Emtricitabine/Tenofovir 1 tab 08/31/17 10:00 09/12/17 10:07 Truvada PO 1 tab DAILY CLARA Administration Eucalyptus/Menthol/Phenol/Sorbitol 1 each 08/30/17 13:04 Cepastat Lozenge - MM Q4H PRN SORE THROAT Guaifenesin 10 ml 08/30/17 13:04 Robitussin Dm - PO Q6H PRN COUGH Hydrochlorothiazide 25 mg 08/31/17 10:00 09/12/17 10:06 Hctz - PO 25 mg DAILY CLARA Administration Ibuprofen 400 mg 08/30/17 13:04 Motrin - PO Q6H PRN Pain Level 4-6 Loperamide HCl 4 mg 08/30/17 13:04 Imodium - PO Q6H PRN DIARRHEA Magnesium Citrate 300 ml 08/30/17 13:04 Citroma - PO Q48H PRN CONSTIPATION Magnesium Hydroxide 30 ml 08/30/17 13:04 Milk Of Magnesia - PO DAILY PRN CONSTIPATION Melatonin 5 mg 08/30/17 22:00 09/12/17 21:27 Melatonin PO 5 mg HS PRN Administration INSOMNIA Prazosin HCl 2 mg 08/30/17 22:00 09/12/17 21:27 Minipress - PO 2 mg HS CLARA Administration Multivit/Folic Acid/Iron 1 tab 08/31/17 10:00 09/12/17 10:06 Vitamins (Sjr) - PO 1 tab DAILY CLARA Administration Sertraline HCl 25 mg 08/31/17 10:00 09/12/17 10:07 Zoloft - PO 25 mg DAILY CLARA Administration Thiamine HCl 100 mg 08/30/17 22:00 09/12/17 21:27 Vitamin B1 - PO 100 mg HS CLARA Administration Current Side Effect: No Lab tests ordered: No Lab tests reviewed: Yes Provider note:: Patient has completed today his treatment and met his identified goals, will continue to address his issues at [facility] outpatient treatment program, he will f/u with his psychiatrist at [facility]. He gained insights into his addiction, understands the negative impact of his addiction over his major life areas and motivated to continue maintain abstinence, patient was encouraged to utilze all supports available to prevent relapses. Patient is stable for discharge today. Scripts for Zoloft and Prazozin 30 days supply provided. Total face to face time:: 20 Mental Status Exam - Mental Status Exam Alert and Oriented to: Time, Place, Person Cognitive Function: Good Patient Appearance: Well Groomed Mood: Hopeful Affect: Appropriate, Mood Congruent Patient Behavior: Appropriate, Cooperative Speech Pattern: Clear, Appropriate Voice Loudness: Normal Thought Process: Intact Thought Disorder: Not Present Hallucinations: Denies Suicidal Ideation: Denies Homicidal Ideation: Denies Insight/Judgement: Fair Sleep: Fair Appetite: Fair Muscle strength/Tone: Normal Gait/Station: Normal Psychiatric Treatment Plan - Problem List (1) PTSD (post-traumatic stress disorder) Current Visit: Yes (2) MDD (major depressive disorder) Current Visit: Yes (3) Marihuana dependence Current Visit: No (4) Nicotine dependence Current Visit: No Qualifiers: Nicotine product type: cigarettes Substance use status: uncomplicated Qualified Code(s): F17.210 - Nicotine dependence, cigarettes, uncomplicated (5) HIV (human immunodeficiency virus infection) Current Visit: No (6) HTN (hypertension), benign Current Visit: No
== END 2017-09-13 11:00 | disposition home or self-care (01) | DRG 772 ==
LOC: YASAS 12:43 → Y5N 12:44
PROVIDERS: ADMIT Psychiatry & Neurology Psychiatry; ATTEND Psychiatry & Neurology Psychiatry
PROC: HZ42ZZZ Group Counseling for Substance Abuse Treatment, Cognitive-Behavioral (ICD-10-PCS; principal; 2017-08-30)
DX: F12.20 Cannabis dependence, uncomplicated (principal); F17.210 Nicotine dependence, cigarettes, uncomplicated; F33.9 Major depressive disorder, recurrent, unspecified; F31.0 Bipolar disorder, current episode hypomanic; F43.10 Post-traumatic stress disorder, unspecified; I10 Essential (primary) hypertension; E78.00 Pure hypercholesterolemia, unspecified; H10.45 Other chronic allergic conjunctivitis; Z21 Asymptomatic human immunodeficiency virus [HIV] infection status

== ENCOUNTER 2021-09-01 14:30 | Inpatient (IN) | payer OTHER ==
[2021-09-01] MEDS ORDERED: MAGNESIUM CITRATE 300 ML BOTTLE PO PRN (16:45)
[2021-09-01] MEDS ORDERED: DICYCLOMINE HCL 10 MG CAPSULE PO PRN (16:45)
[2021-09-01] MEDS ORDERED: LOPERAMIDE HCL 2 MG CAPSULE PO PRN (16:45)
[2021-09-01] MEDS ORDERED: BISMUTH SUBSALICYLATE 524 MG/30 ML PO PRN (16:45)
[2021-09-01] MEDS ORDERED: ONDANSETRON *ODT* 4 MG TABLET SL PRN (16:45)
[2021-09-01] MEDS ORDERED: MAGNESIUM HYDROX 2400MG/30ML ORAL SUSPENSION 30 ML CUP PO PRN (16:45)
[2021-09-01] MEDS ORDERED: NICOTINE 10 MG CARTRIDGE (INHALER) IH PRN (16:45)
[2021-09-01] MEDS ORDERED: METHOCARBAMOL 500 MG TABLET PO PRN (16:45)
[2021-09-01] MEDS ORDERED: MAG HYDROX/AL HYDROX/SIMETH 30 ML UNIT-DOSE CUP PO PRN (16:45)
[2021-09-01] MEDS ORDERED: IBUPROFEN 400 MG TABLET (FP) PO PRN (16:45)
[2021-09-01] MEDS ORDERED: ACETAMINOPHEN 325 MG TABLET (FP) PO PRN ×2 (16:45)
[2021-09-01] MEDS ORDERED: MENTHOL/PHENOL 1 EACH UD MM PRN (16:45)
[2021-09-01 17:17] VITALS: BMI 61.7
[2021-09-01] MEDS: MELATONIN 5 MG TABLETS PO SCH (21:39)
[2021-09-01] MEDS: THIAMINE HCL 100 MG TABLET (FP) PO SCH (21:39)
[2021-09-01] MEDS: PRENATAL VITAMINS W/ FOLIC ACID TABLET (FP) PO SCH (21:40)
[2021-09-01] MEDS: hydrOXYzine PAMOATE 25 MG CAPSULE (FP) PO SCH (21:41)
[2021-09-02] MEDS: hydrOXYzine PAMOATE 25 MG CAPSULE (FP) PO SCH ×5 (06:15→22:12)
[2021-09-02] MEDS ORDERED: diazePAM 5 MG TABLET PO PRN (09:38)
[2021-09-02] MEDS ORDERED: ALBUTEROL SO4 HFA INHALER IH PRN (09:38)
[2021-09-02] MEDS ORDERED: BICTEGRAV/EMTRICIT/TENOFOV (BIKTARVY) 50-200-25 MG TABLET PO SCH ×2 (10:00→23:00)
[2021-09-02] MEDS ORDERED: DARUNAVIR 800 MG/COBICISTAT 150MG TABLET PO SCH ×2 (10:00→23:00)
[2021-09-02] MEDS: HYDROCHLOROTHIAZIDE 25 MG TABLET (FP) PO SCH (11:01)
[2021-09-02] MEDS: PRENATAL VITAMINS W/ FOLIC ACID TABLET (FP) PO SCH (11:01)
[2021-09-02 11:20] LABS: HEMOGLOBIN 11.9 GM/dL (11.7-16.9); MCH 23.9 pg (25.7-33.7); MCHC 32.2 g/dl (32.0-35.9); MEAN CELL VOLUME 74.2 fl (80-96); MEAN PLT VOLUME 7.4 fl (7.5-11.1); PLATELET COUNT 319 10^3/uL (134-434); RBC 4.99 M/mm3 (4.00-5.60); RDW 16.9 % (11.9-15.9); WHITE BLOOD COUNT 7.3 K/mm3 (4.0-10.0)
[2021-09-02 11:24] LABS: CALCIUM 8.2 mg/dL (8.5-10.1)
[2021-09-02 11:25] LABS: BLOOD UREA NITROGEN 9.4 mg/dL (7-18)
[2021-09-02 11:26] LABS: CREATININE 0.9 mg/dL (0.55-1.3)
[2021-09-02 11:28] LABS: BILIRUBIN,TOTAL 0.3 mg/dL (0.2-1); TOT PROT 5.7 g/dl (6.4-8.2)
[2021-09-02] MEDS: THIAMINE HCL 100 MG TABLET (FP) PO SCH (22:12)
[2021-09-02] MEDS: MELATONIN 5 MG TABLETS PO SCH (22:13)
[2021-09-03] MEDS: hydrOXYzine PAMOATE 25 MG CAPSULE (FP) PO SCH ×2 (06:05→10:45)
[2021-09-03 08:39] VITALS: PULSE 74
[2021-09-03 09:39] VITALS: BP 115/81; TEMP 97.8
[2021-09-03] MEDS: PRENATAL VITAMINS W/ FOLIC ACID TABLET (FP) PO SCH (10:45)
[2021-09-03] MEDS: HYDROCHLOROTHIAZIDE 25 MG TABLET (FP) PO SCH (10:45)
[2021-09-03 16:08] LABS: SARS-CoV-2 NAA Not Detected (Not Detected)
== END 2021-09-03 11:43 | disposition other institution (70) | DRG 773 ==
LOC: YASAS 14:30 → Y3N 21:04 → UNDOADMIN 21:04
PROVIDERS: ADMIT Allergy & Immunology; ATTEND Allergy & Immunology
PROC: HZ2ZZZZ Detoxification Services for Substance Abuse Treatment (ICD-10-PCS; principal; 2021-09-01)
DX: F11.23 Opioid dependence with withdrawal (principal); F10.230 Alcohol dependence with withdrawal, uncomplicated; F12.20 Cannabis dependence, uncomplicated; F14.10 Cocaine abuse, uncomplicated; F15.10 Other stimulant abuse, uncomplicated; F17.210 Nicotine dependence, cigarettes, uncomplicated; F19.24 Other psychoactive substance dependence with psychoactive substance-induced mood disorder; F43.10 Post-traumatic stress disorder, unspecified; Z21 Asymptomatic human immunodeficiency virus [HIV] infection status; I10 Essential (primary) hypertension; E78.00 Pure hypercholesterolemia, unspecified; M54.59 Other low back pain; G89.29 Other chronic pain; Z88.0 Allergy status to penicillin; Z62.810 Personal history of physical and sexual abuse in childhood; Z91.51 Personal history of suicidal behavior; Z56.0 Unemployment, unspecified
CPT/HCPCS: 36415; 80053; 85027; 86780; 87811; C9803-CS; U0003; U0005

== ENCOUNTER 2021-09-03 12:06 | Inpatient (IN) | payer OTHER ==
[2021-09-03] MEDS ORDERED: ACETAMINOPHEN 325 MG TABLET (FP) PO PRN (13:13)
[2021-09-03] MEDS ORDERED: NICOTINE 10 MG CARTRIDGE (INHALER) IH PRN (13:13)
[2021-09-03] MEDS ORDERED: P-EPHED 60MG/TRIPROLIDI 2.5MG TABLET PO PRN (13:13)
[2021-09-03] MEDS ORDERED: MAGNESIUM HYDROX 2400MG/30ML ORAL SUSPENSION 30 ML CUP PO PRN (13:13)
[2021-09-03] MEDS ORDERED: guaiFENesin 200 MG/10 ML 10 ML UNIT-DOSE CUPS PO PRN (13:13)
[2021-09-03] MEDS ORDERED: IBUPROFEN 400 MG TABLET (FP) PO PRN (13:13)
[2021-09-03] MEDS ORDERED: LOPERAMIDE HCL 2 MG CAPSULE PO PRN (13:13)
[2021-09-03] MEDS ORDERED: MAGNESIUM CITRATE 300 ML BOTTLE PO PRN (13:13)
[2021-09-03] MEDS ORDERED: MENTHOL/PHENOL 1 EACH UD MM PRN (13:13)
[2021-09-03] MEDS ORDERED: ALBUTEROL SO4 HFA INHALER IH PRN (13:14)
[2021-09-03] MEDS: hydrOXYzine PAMOATE 25 MG CAPSULE (FP) PO SCH ×3 (15:12→21:19)
[2021-09-03] MEDS: METHOCARBAMOL 500 MG TABLET PO SCH ×3 (15:12→21:18)
[2021-09-03] MEDS: MELATONIN 5 MG TABLETS PO SCH (21:18)
[2021-09-03] MEDS: THIAMINE HCL 100 MG TABLET (FP) PO SCH (21:18)
[2021-09-03] MEDS: DARUNAVIR 800 MG/COBICISTAT 150MG TABLET PO SCH (21:19)
[2021-09-03] MEDS: BICTEGRAV/EMTRICIT/TENOFOV (BIKTARVY) 50-200-25 MG TABLET PO SCH (21:20)
[2021-09-04] MEDS: hydrOXYzine PAMOATE 25 MG CAPSULE (FP) PO SCH ×5 (05:58→21:03)
[2021-09-04] MEDS: METHOCARBAMOL 500 MG TABLET PO SCH ×4 (10:27→21:03)
[2021-09-04] MEDS: PRENATAL VITAMINS W/ FOLIC ACID TABLET (FP) PO SCH (10:27)
[2021-09-04] MEDS: HYDROCHLOROTHIAZIDE 25 MG TABLET (FP) PO SCH (10:27)
[2021-09-04] MEDS: NICOTINE 7 MG/24 HOURS TOPICAL PATCH TD SCH (10:28)
[2021-09-04] MEDS ORDERED: PNEUMOC 13-VAL CONJ-DIP CRM/PF 0.5 ML DISP.SYRIN IM ONE (12:00)
[2021-09-04] MEDS: MELATONIN 5 MG TABLETS PO SCH (21:03)
[2021-09-04] MEDS: THIAMINE HCL 100 MG TABLET (FP) PO SCH (21:03)
[2021-09-04] MEDS: DARUNAVIR 800 MG/COBICISTAT 150MG TABLET PO SCH (21:03)
[2021-09-04] MEDS: BICTEGRAV/EMTRICIT/TENOFOV (BIKTARVY) 50-200-25 MG TABLET PO SCH (21:04)
[2021-09-05] MEDS: hydrOXYzine PAMOATE 25 MG CAPSULE (FP) PO SCH ×5 (06:37→21:23)
[2021-09-05] MEDS: METHOCARBAMOL 500 MG TABLET PO SCH ×4 (10:23→21:23)
[2021-09-05] MEDS: HYDROCHLOROTHIAZIDE 25 MG TABLET (FP) PO SCH (10:23)
[2021-09-05] MEDS: PRENATAL VITAMINS W/ FOLIC ACID TABLET (FP) PO SCH (10:24)
[2021-09-05] MEDS: NICOTINE 7 MG/24 HOURS TOPICAL PATCH TD SCH (10:24)
[2021-09-05] MEDS: THIAMINE HCL 100 MG TABLET (FP) PO SCH (21:22)
[2021-09-05] MEDS: MELATONIN 5 MG TABLETS PO SCH (21:22)
[2021-09-05] MEDS: DARUNAVIR 800 MG/COBICISTAT 150MG TABLET PO SCH (21:23)
[2021-09-05] MEDS: MAG HYDROX/AL HYDROX/SIMETH 30 ML UNIT-DOSE CUP PO PRN (21:24)
[2021-09-05] MEDS: BICTEGRAV/EMTRICIT/TENOFOV (BIKTARVY) 50-200-25 MG TABLET PO SCH (21:24)
[2021-09-06] MEDS: hydrOXYzine PAMOATE 25 MG CAPSULE (FP) PO SCH ×5 (06:04→21:17)
[2021-09-06] MEDS: HYDROCHLOROTHIAZIDE 25 MG TABLET (FP) PO SCH (09:50)
[2021-09-06] MEDS: PRENATAL VITAMINS W/ FOLIC ACID TABLET (FP) PO SCH (09:50)
[2021-09-06] MEDS: NICOTINE 7 MG/24 HOURS TOPICAL PATCH TD SCH (09:50)
[2021-09-06] MEDS: METHOCARBAMOL 500 MG TABLET PO SCH ×4 (09:50→21:18)
[2021-09-06] MEDS: BICTEGRAV/EMTRICIT/TENOFOV (BIKTARVY) 50-200-25 MG TABLET PO SCH (21:17)
[2021-09-06] MEDS: THIAMINE HCL 100 MG TABLET (FP) PO SCH (21:17)
[2021-09-06] MEDS: MELATONIN 5 MG TABLETS PO SCH (21:18)
[2021-09-06] MEDS: DARUNAVIR 800 MG/COBICISTAT 150MG TABLET PO SCH (21:19)
[2021-09-07] MEDS: hydrOXYzine PAMOATE 25 MG CAPSULE (FP) PO SCH ×5 (06:00→21:44)
[2021-09-07] MEDS: METHOCARBAMOL 500 MG TABLET PO SCH ×4 (10:21→21:44)
[2021-09-07] MEDS: NICOTINE 7 MG/24 HOURS TOPICAL PATCH TD SCH (10:21)
[2021-09-07] MEDS: HYDROCHLOROTHIAZIDE 25 MG TABLET (FP) PO SCH (10:21)
[2021-09-07] MEDS: PRENATAL VITAMINS W/ FOLIC ACID TABLET (FP) PO SCH (10:21)
[2021-09-07] MEDS: BICTEGRAV/EMTRICIT/TENOFOV (BIKTARVY) 50-200-25 MG TABLET PO SCH (21:44)
[2021-09-07] MEDS: DARUNAVIR 800 MG/COBICISTAT 150MG TABLET PO SCH (21:44)
[2021-09-07] MEDS: THIAMINE HCL 100 MG TABLET (FP) PO SCH (21:44)
[2021-09-07] MEDS: MELATONIN 5 MG TABLETS PO SCH (21:44)
[2021-09-07] MEDS: MAG HYDROX/AL HYDROX/SIMETH 30 ML UNIT-DOSE CUP PO PRN (22:19)
[2021-09-08] MEDS: hydrOXYzine PAMOATE 25 MG CAPSULE (FP) PO SCH ×5 (06:14→21:18)
[2021-09-08] MEDS ORDERED: DOCUSATE SODIUM 100 MG CAPSULE (FP) PO PRN (08:53)
[2021-09-08] MEDS: PRENATAL VITAMINS W/ FOLIC ACID TABLET (FP) PO SCH (10:10)
[2021-09-08] MEDS: HYDROCHLOROTHIAZIDE 25 MG TABLET (FP) PO SCH (10:10)
[2021-09-08] MEDS: METHOCARBAMOL 500 MG TABLET PO SCH ×4 (10:11→21:18)
[2021-09-08] MEDS: NICOTINE 7 MG/24 HOURS TOPICAL PATCH TD SCH (10:11)
[2021-09-08] MEDS: DARUNAVIR 800 MG/COBICISTAT 150MG TABLET PO SCH (21:18)
[2021-09-08] MEDS: THIAMINE HCL 100 MG TABLET (FP) PO SCH (21:18)
[2021-09-08] MEDS: MELATONIN 5 MG TABLETS PO SCH (21:18)
[2021-09-08] MEDS: BICTEGRAV/EMTRICIT/TENOFOV (BIKTARVY) 50-200-25 MG TABLET PO SCH (21:18)
[2021-09-09] MEDS: hydrOXYzine PAMOATE 25 MG CAPSULE (FP) PO SCH ×5 (05:50→21:05)
[2021-09-09] MEDS: HYDROCHLOROTHIAZIDE 25 MG TABLET (FP) PO SCH (09:06)
[2021-09-09] MEDS: PRENATAL VITAMINS W/ FOLIC ACID TABLET (FP) PO SCH (09:06)
[2021-09-09] MEDS: NICOTINE 7 MG/24 HOURS TOPICAL PATCH TD SCH (09:06)
[2021-09-09] MEDS: METHOCARBAMOL 500 MG TABLET PO SCH ×4 (09:07→21:05)
[2021-09-09] MEDS: MELATONIN 5 MG TABLETS PO SCH (21:05)
[2021-09-09] MEDS: DARUNAVIR 800 MG/COBICISTAT 150MG TABLET PO SCH (21:05)
[2021-09-09] MEDS: BICTEGRAV/EMTRICIT/TENOFOV (BIKTARVY) 50-200-25 MG TABLET PO SCH (21:05)
[2021-09-09] MEDS: THIAMINE HCL 100 MG TABLET (FP) PO SCH (21:05)
[2021-09-10] MEDS: hydrOXYzine PAMOATE 25 MG CAPSULE (FP) PO SCH ×5 (05:40→21:20)
[2021-09-10] MEDS: NICOTINE 7 MG/24 HOURS TOPICAL PATCH TD SCH (10:32)
[2021-09-10] MEDS: PRENATAL VITAMINS W/ FOLIC ACID TABLET (FP) PO SCH (10:32)
[2021-09-10] MEDS: HYDROCHLOROTHIAZIDE 25 MG TABLET (FP) PO SCH (10:32)
[2021-09-10] MEDS: METHOCARBAMOL 500 MG TABLET PO SCH ×4 (10:32→21:20)
[2021-09-10] MEDS: THIAMINE HCL 100 MG TABLET (FP) PO SCH (21:20)
[2021-09-10] MEDS: MELATONIN 5 MG TABLETS PO SCH (21:20)
[2021-09-10] MEDS: DARUNAVIR 800 MG/COBICISTAT 150MG TABLET PO SCH (21:20)
[2021-09-10] MEDS: BICTEGRAV/EMTRICIT/TENOFOV (BIKTARVY) 50-200-25 MG TABLET PO SCH (21:20)
[2021-09-11] MEDS: hydrOXYzine PAMOATE 25 MG CAPSULE (FP) PO SCH ×5 (06:26→21:11)
[2021-09-11] MEDS: NICOTINE 7 MG/24 HOURS TOPICAL PATCH TD SCH (09:48)
[2021-09-11] MEDS: PRENATAL VITAMINS W/ FOLIC ACID TABLET (FP) PO SCH (09:48)
[2021-09-11] MEDS: HYDROCHLOROTHIAZIDE 25 MG TABLET (FP) PO SCH (09:48)
[2021-09-11] MEDS: METHOCARBAMOL 500 MG TABLET PO SCH ×4 (09:49→21:09)
[2021-09-11] MEDS: BICTEGRAV/EMTRICIT/TENOFOV (BIKTARVY) 50-200-25 MG TABLET PO SCH (21:08)
[2021-09-11] MEDS: MELATONIN 5 MG TABLETS PO SCH (21:08)
[2021-09-11] MEDS: DARUNAVIR 800 MG/COBICISTAT 150MG TABLET PO SCH (21:09)
[2021-09-11] MEDS: THIAMINE HCL 100 MG TABLET (FP) PO SCH (21:11)
[2021-09-12] MEDS: hydrOXYzine PAMOATE 25 MG CAPSULE (FP) PO SCH ×5 (06:23→21:30)
[2021-09-12] MEDS: HYDROCHLOROTHIAZIDE 25 MG TABLET (FP) PO SCH (10:03)
[2021-09-12] MEDS: METHOCARBAMOL 500 MG TABLET PO SCH ×4 (10:03→21:30)
[2021-09-12] MEDS: PRENATAL VITAMINS W/ FOLIC ACID TABLET (FP) PO SCH (10:03)
[2021-09-12] MEDS: NICOTINE 7 MG/24 HOURS TOPICAL PATCH TD SCH (10:03)
[2021-09-12] MEDS: BICTEGRAV/EMTRICIT/TENOFOV (BIKTARVY) 50-200-25 MG TABLET PO SCH (21:30)
[2021-09-12] MEDS: THIAMINE HCL 100 MG TABLET (FP) PO SCH (21:30)
[2021-09-12] MEDS: MELATONIN 5 MG TABLETS PO SCH (21:30)
[2021-09-12] MEDS: DARUNAVIR 800 MG/COBICISTAT 150MG TABLET PO SCH (21:31)
[2021-09-13] MEDS: hydrOXYzine PAMOATE 25 MG CAPSULE (FP) PO SCH ×5 (06:09→21:12)
[2021-09-13] MEDS: NICOTINE 7 MG/24 HOURS TOPICAL PATCH TD SCH (10:50)
[2021-09-13] MEDS: PRENATAL VITAMINS W/ FOLIC ACID TABLET (FP) PO SCH (10:50)
[2021-09-13] MEDS: HYDROCHLOROTHIAZIDE 25 MG TABLET (FP) PO SCH (10:50)
[2021-09-13] MEDS: METHOCARBAMOL 500 MG TABLET PO SCH ×4 (10:51→21:12)
[2021-09-13] MEDS: MELATONIN 5 MG TABLETS PO SCH (21:12)
[2021-09-13] MEDS: THIAMINE HCL 100 MG TABLET (FP) PO SCH (21:12)
[2021-09-13] MEDS: BICTEGRAV/EMTRICIT/TENOFOV (BIKTARVY) 50-200-25 MG TABLET PO SCH (21:12)
[2021-09-13] MEDS: DARUNAVIR 800 MG/COBICISTAT 150MG TABLET PO SCH (21:14)
[2021-09-14] MEDS: hydrOXYzine PAMOATE 25 MG CAPSULE (FP) PO SCH ×5 (06:03→21:32)
[2021-09-14] MEDS: PRENATAL VITAMINS W/ FOLIC ACID TABLET (FP) PO SCH (10:23)
[2021-09-14] MEDS: HYDROCHLOROTHIAZIDE 25 MG TABLET (FP) PO SCH (10:23)
[2021-09-14] MEDS: NICOTINE 7 MG/24 HOURS TOPICAL PATCH TD SCH (10:23)
[2021-09-14] MEDS: METHOCARBAMOL 500 MG TABLET PO SCH ×4 (10:23→21:32)
[2021-09-14] MEDS: MELATONIN 5 MG TABLETS PO SCH (21:31)
[2021-09-14] MEDS: THIAMINE HCL 100 MG TABLET (FP) PO SCH (21:32)
[2021-09-14] MEDS: BICTEGRAV/EMTRICIT/TENOFOV (BIKTARVY) 50-200-25 MG TABLET PO SCH (21:33)
[2021-09-14] MEDS: DARUNAVIR 800 MG/COBICISTAT 150MG TABLET PO SCH (21:46)
[2021-09-15] MEDS: hydrOXYzine PAMOATE 25 MG CAPSULE (FP) PO SCH (06:32)
[2021-09-15 06:55] VITALS: TEMP 97.4
[2021-09-15 11:34] VITALS: BP 122/84; PULSE 101
== END 2021-09-15 09:46 | disposition home or self-care (01) | DRG 772 ==
LOC: YASAS 12:06 → Y3W 12:07
PROVIDERS: ADMIT Allergy & Immunology; ATTEND Allergy & Immunology
PROC: HZ42ZZZ Group Counseling for Substance Abuse Treatment, Cognitive-Behavioral (ICD-10-PCS; principal; 2021-09-03)
DX: F10.20 Alcohol dependence, uncomplicated (principal); F14.20 Cocaine dependence, uncomplicated; F12.20 Cannabis dependence, uncomplicated; F15.10 Other stimulant abuse, uncomplicated; F17.210 Nicotine dependence, cigarettes, uncomplicated; Z21 Asymptomatic human immunodeficiency virus [HIV] infection status; I10 Essential (primary) hypertension; M54.50 Low back pain, unspecified; G89.29 Other chronic pain; Z88.8 Allergy status to other drugs, medicaments and biological substances
CPT/HCPCS: 90670; C9803-CS; U0003; U0005